=== PATIENT | female | born 1990 | race Two or more races ===

== ENCOUNTER 2020-12-14 21:24 | Emergency (ER) | payer OTHER ==
[~2020-12-14] VITALS: Ht 165.1 cm; Wt 63.0 kg
[2020-12-15] MEDS ORDERED: PEPCID40 MG PO (01:43)
[2020-12-15] MEDS ORDERED: ZOFRAN8 MG PO (01:43)
== END 2020-12-15 02:06 | disposition home or self-care (01) ==
LOC: ER 21:24
DX: R11.11 Vomiting without nausea (principal); K29.70 Gastritis, unspecified, without bleeding

== ENCOUNTER 2021-07-15 20:55 | Emergency (ER) | payer OTHER ==
[~2021-07-15] VITALS: Ht 165.1 cm; Wt 64.9 kg
[~2021-07-15 20:55] MED LIST: PEPCID40 MG PO; ZOFRAN8 MG PO
[2021-07-16] MEDS ORDERED: LEVSIN/SL0.125 MG SL (05:12)
== END 2021-07-16 05:40 ==
LOC: ER 20:55
DX: R10.84 Generalized abdominal pain (principal)